=== PATIENT | female | born 1955 | race Caucasian/White ===

== ENCOUNTER 2016-11-05 12:24 | Inpatient (IN) | payer BC ==
[2016-11-05] MEDS ORDERED: SODIUM CHLORIDE 0.9% 10 ML FLUSH FLUSH PRN (12:40)
--- NOTE | 2016-11-05 12:55 | EDPRACDOC ---
- General Information Chief Complaint: Nausea,Vomiting,Diarrhea Stated Complaint: VOMITING DIABETIC Time Seen by Provider: 11/05/16 12:40 Mode Of Arrival: Car Home Medications: Home Medications Lisinopril 20 mg PO QHS 11/10/13 Insulin Aspart [Novolog] 26.7 units SQ DAILY 07/04/15 Loratadine 10 mg PO DAILY PRN 07/04/15 Melatonin 5 mg PO HS 07/04/15 Montelukast Sodium [Singulair] 10 mg PO HS 07/04/15 Tamoxifen [Nolvadex] 20 mg PO DAILY 07/04/15 Omeprazole [Prilosec] 20 mg PO BID #60 cap 07/28/16 Venlafaxine HCl ER [Effexor Xr] 37.5 mg PO DAILY 07/28/16 Hydrocodone Bit/Homatrop Me-Br [Hydrocodone Compound Syrup] 10 ml PO DAILY 11/05 Oseltamivir Phosphate [Tamiflu] 75 mg PO .BID X 5D 11/05/16 Allergies/Adverse Reactions: Allergies Allergy/AdvReac Type Severity Reaction Status Date / Time adhesive Allergy Rash-Genera Verified 11/05/16 12:36 lized latex Allergy Rash-Locali Verified 11/05/16 12:36 zed - History of Present Illness Onset: SUN HPI: SENT BY DR. ANGLIN FOR POSSIBLE DKA; HX OF DM; HAS INSULIN PUMP; RECENT DX OF FLU; FEELS SICK, TIRED, AND WORN OUT. RECORDS REVIEWED FROM DR. ANGLIN OFFICE. Symptoms Occured: Reports: Spontaneous Emesis: Denies: Bilious Recent: Denies: Travel Pain Severity: None Associated Signs & Symptoms: Reports: Nausea, Vomiting Oral Intake: Decreased Urinary Output: Normal ED Past Medical History - History Reviewed Yes Nurses notes reviewed and agree except as marked - Patient Medical History Cardiac History: Reports: Hypertension. Denies: Hypercholesterolemia Respiratory History: Reports: Emphysema. Denies: Pneumonia (2010) Psychological History: Denies: Depression, Substance Use Disorder Systemic History: Reports: Cancer (RIGHT BREAST-2013, lumpectomy and rad no chemo except tamox. MELANOMA.), Anemia (BEFORE HYSTERECTOMY), Diabetes ( Diabetes type 2, but now requires insulin. INSULIN PUMP) Surgical History: Reports: Cholecystectomy, Hysterectomy, Other (Lumpectomy right breast. Cyst removed from foot.) Date of Last Radiation Treatment: 02/2014 - Family Medical History Reports: Cancer (MOTHER, BREAST), Stroke (MOTHER: thought due to complication of a procuedure), Cardiac Disorders (MOTHER: [place] in late 60s.). Denies: Diabetes - Social Medical History Smoking Status: Never smoker Social History: Denies: Substance Use Disorder EDM Review of Systems - Review of Systems ROS Negative Except as Marked: Yes All systems reviewed and were negative except as marked - Physical Exam Constitutional: Alert (Awake), No apparent distress Oriented to: Time, Person, Place Last recorded Vital Signs: Last Vital Signs Temp 98.0 F 11/05/16 12:33 Pulse 95 11/05/16 12:33 Resp 20 11/05/16 12:33 BP 144/65 11/05/16 12:33 Pulse Ox 96 11/05/16 12:33 Oxygen Pulse Oxygen Saturation 96 O2 Device Oxygen Flow Rate Fraction of Inspired Oxygen ( FIO2) - HEENT Head: Normal ( normocephalic) Eye Exam: Normal (PERRL, EOMI, Sclera white) Oropharynx: Normal (Pharynx:Moist without exudate,Gums-no swelling) Tympanic Membrane: Normal ENT EAC: Normal TMJ: Normal Nose: No Symptoms Reported (septum midline) Neck: Normal (FROM, trachea at midline) - Respiratory/Cardiovascular Respiratory: Normal - CTA (BBS clear to auscultation without adventitious sounds ) Cardiovascular: Normal (RRR without murmur, gallop or rub) - GI Auscultation: Normal (NABS) Palpation: Normal (Soft,No rebound or guarding, non distended) Tenderness: Non tender Gaona's Sign: Negative - Musculoskeletal Back: Normal (Non-Tender) Extremities: Normal (Normal tone, Pulses 2+ No cyanosis or edema, FROM) - Integumentary Skin: Normal, Warm, Dry Lymphatics: Normal (no adenopathy) - Neurologic Memory Impaired: Normal Motor Function: Normal (Normal tone, Pulses 2+ No cyanosis or edema, FROM) Cranial Nerve: Normal (CN II-X11 intact sensation, strength 5/5) Cerebellar: Normal Mood Description: Normal Perception: Normal - Results 11/05/16 13:40 11/05/16 13:40 POC Capillary Glucose 565 mg/dL (70-99) H* 11/05/16 12:37 Lab Results 02/01/17 12:37 POC Capillary Glucose 565 H* - EKG EKG #1 [facility]: Normal Rhythm: NSR Block: None Hypertrophy: None ST: Normal ED Critical Care Note - Critical Care Note Total Time (mins): 34 - Departure Yes I personally saw and evaluated the patient. Disposition: Admit IP To This Hospital Condition: Fair Final Diagnosis: DKA Referrals: Bria Anglin MD [Primary Care Provider] - One Week Prescriptions: No Action Lisinopril 20 mg PO QHS Tamoxifen [Nolvadex] 20 mg PO DAILY Montelukast Sodium [Singulair] 10 mg PO HS Loratadine 10 mg PO DAILY PRN PRN Reason: Allergy Symptoms Melatonin 5 mg PO HS Insulin Aspart [Novolog] 26.7 units SQ DAILY Venlafaxine HCl ER [Effexor Xr] 37.5 mg PO DAILY Omeprazole [Prilosec] 20 mg PO BID #60 cap Hydrocodone Bit/Homatrop Me-Br [Hydrocodone Compound Syrup] 10 ml PO DAILY Oseltamivir Phosphate [Tamiflu] 75 mg PO .BID X 5D Decision to Admit Time: 14:35 (FABIAN) Decision to admit date: 11/05/16 Decision to admit: from ED
[2016-11-05 12:56] LABS: ALLEN'S TEST PASS; BEb -14.1 (+/- 2); TCO2 15.1 MMOL/L (23-27)
[2016-11-05 12:57] LABS: ABG Draw Site Left Radial
[2016-11-05 13:16] LABS: LEUKOCYTES/URINE NEG (NEGATIVE); NITRITE/URINE NEG (NEGATIVE); RBC/URINE 0-2 (0-5); URINE OCCULT BLOOD NEG (NEG/TRACE); WBC/URINE 0-2 (0-5)
[2016-11-05] MEDS ORDERED: Insulin, Regular 100 UNITS in NS 99 ML IV SCH ×2 (14:00)
[2016-11-05 14:07] LABS: MPV 10.6 fL (7.4-10.4)
[2016-11-05 14:17] LABS: BLOOD UREA NITROGEN 34 MG/DL (7-17); CALC CORRECTED 8.7 MG/DL (8.4-10.2); CALCIUM 8.2 MG/DL (8.4-10.2); CALCULATED OSMOLALITY 274 MOs/Kg (270-290); CHLORIDE 91 mEq/L (98-107); SODIUM LEVEL 126 mEq/L (137-146)
[2016-11-05 14:25] LABS: GLUCOSE 514 mg/dL (70-99)
[2016-11-05] MEDS: NS 1,000 ML IV SCH ×2 (14:27→15:42)
--- NOTE | 2016-11-05 14:28 | DIRPT ---
CLINICAL DATA: 61-year-old female with history of chest pain. EXAM: PORTABLE CHEST 1 VIEW COMPARISON: Chest x-ray 07/27/2016. FINDINGS: Lung volumes are normal. No consolidative airspace disease. No pleural effusions. No pneumothorax. No pulmonary nodule or mass noted. Pulmonary vasculature and the cardiomediastinal silhouette are within normal limits. IMPRESSION: No radiographic evidence of acute cardiopulmonary disease. Electronically Signed By: Thomas Delatorre M.D. On: 11/05/2016 14:25
[2016-11-05] MEDS ORDERED: ACETAMINOPHEN 325 MG/TAB TABLET PO PRN (15:15)
[2016-11-05] MEDS ORDERED: Loratadine 10 MG TAB PO PRN (15:15)
[2016-11-05] MEDS ORDERED: ONDANSETRON HCL 4 MG/2 ML VIAL IV PRN (15:15)
[2016-11-05 15:22] LABS: SEG NEUTROPHIL 82 % (45-76)
--- NOTE | 2016-11-05 15:27 | HISTPHYS ---
- Chief Complaint weak, n/v, hyperglycemia - History of Present Illness This is a pleasant 61-year-old female with a history of diabetes mellitus who has an insulin pump for the last 2 years, was recently diagnosed with influenza on ThursdayNovember 03, and developed hyperglycemia with nausea and vomiting earlier today. She was seen in her primary care physician's office, with elevated blood sugars over 500, and sent to the emergency department for evaluation for potential diabetic ketoacidosis. Indeed, lab work here showed severe acidosis with a pH of 7.1, and low bicarb with a blood sugar of 550. She was given copious IV fluids and insulin drip was initiated. Hospitalist group was consulted for further evaluation and inpatient admission and management of her diabetic ketoacidosis. Patient denies any current fevers or chills, but says that she had fevers earlier in the week. She also says that she has had some slight chest pain, but it is clearly muscular because it hurts only when she coughs, and not with exertion. She has had nausea and vomiting earlier today, but denies any abdominal pain or diarrhea currently. No rashes on her skin, sick contacts. No swelling in her legs, changes in weight or appetite. - Medical History Cardiac History: Reports: Hypertension. Denies: Hypercholesterolemia Respiratory History: Reports: Emphysema. Denies: Pneumonia (2010) Systemic History: Reports: Cancer (RIGHT BREAST-2013, lumpectomy and rad no chemo except tamox. MELANOMA.), Anemia (BEFORE HYSTERECTOMY), Diabetes ( Diabetes type 2, but now requires insulin. INSULIN PUMP) Psychological History: Denies: Depression, Substance Use Disorder - Surgical History Reports: Cholecystectomy, Hysterectomy, Other (Lumpectomy right breast. Cyst removed from foot.) - Medictions/Allergies Allergies adhesive Allergy (Verified 11/05/16 12:36) Rash-Generalized latex Allergy (Verified 11/05/16 12:36) Rash-Localized Home Medications Lisinopril 20 mg PO QHS 11/10/13 Insulin Aspart [Novolog] 26.7 units SQ DAILY 07/04/15 Loratadine 10 mg PO DAILY PRN 07/04/15 Melatonin 5 mg PO HS 07/04/15 Montelukast Sodium [Singulair] 10 mg PO HS 07/04/15 Tamoxifen [Nolvadex] 20 mg PO DAILY 07/04/15 Omeprazole [Prilosec] 20 mg PO BID #60 cap 07/28/16 Venlafaxine HCl ER [Effexor Xr] 37.5 mg PO DAILY 07/28/16 Hydrocodone Bit/Homatrop Me-Br [Hydrocodone Compound Syrup] 10 ml PO DAILY 11/05 Oseltamivir Phosphate [Tamiflu] 75 mg PO .BID X 5D 11/05/16 - Family History Reports: Cancer (MOTHER, BREAST), Stroke (MOTHER: thought due to complication of a procuedure), Cardiac Disorders (MOTHER: [place] in late 60s.). Denies: Diabetes - Social History Smoking Status: Never smoker Social History: Denies: Substance Use Disorder - Review of Systems Yes All systems reviewed and were negative except as marked (And as mentioned in the history of present illness above.) - Physical Exam Vital Signs: Initial Vitals Temperature 98.0 F 11/05/16 12:33 Pulse Rate 95 11/05/16 12:33 Respiratory Rate 20 11/05/16 12:33 Blood Pressure 144/65 11/05/16 12:33 Pulse Oxygen Saturation 96 11/05/16 12:33 Constitutional: Alert, Distress Oriented to: Time, Person, Place Exam: She is a good historian, seen in a stretcher in the emergency department with no family at the bedside. - HEENT Head: Normal (normocephalic,atraumatic, trachea midline) Eye: Normal (EOMI, Sclera white) Oropharynx: Normal (moist) Nose: No Symptoms Reported (without discharge or bleeding) Respiratory: Normal - CTA (Clear to auscultation bilaterally, no wheezing,rales or rhonchi. No use of accessory muscles) Cardiovascular: Normal (RRR, no murmurs, rubs or gallops) - GI Palpation: Normal (soft, non distended and nontender) - Musculoskeletal Extremities: Normal (normal tone, no cyanosis or edema) - Neurologic Note that her mucous membranes are dry. - Focused CV Perfusion Exam Vital Signs: Last Vital Signs Temp 97.7 F 11/05/16 13:19 Pulse 83 11/05/16 14:49 Resp 18 11/05/16 14:49 BP 112/53 L 11/05/16 14:30 Pulse Ox 92 11/05/16 14:49 - Lab Results Laboratory Tests 11/05/16 11/05/16 11/05/16 12:37 12:56 13:40 WBC Hgb Hct INR pH 7.160 L* pCO2 39.0 pO2 70.0 L Sodium 126 L Potassium 5.0 Carbon Dioxide 13 L Glucose 514 H* POC Capillary Glucose 565 H* ALT 54 H 11/05/16 11/05/16 13:40 13:40 WBC 7.9 Hgb 12.5 Hct 38.3 INR 1.0 pH pCO2 pO2 Sodium Potassium Carbon Dioxide Glucose POC Capillary Glucose ALT - Diagnostic Findings CXR: Lung volumes are normal. No consolidative airspace disease. No pleural effusions. No pneumothorax. No pulmonary nodule or mass noted. Pulmonary vasculature and the cardiomediastinal silhouette are within normal limits - Assessment (1) DKA (diabetic ketoacidoses) E13.10 - OTH DIABETES MELLITUS WITH KETOACIDOSIS WITHOUT COMA Acute Patient is being admitted to the hospital with severe diabetic ketoacidosis without coma , with a pH of 7.1 and other electrolyte abnormalities including hyponatremia and hyperkalemia. She will be admitted to the intensive care unit for close monitoring, using the DKA evidence based care order set. She has been placed on insulin drip, and aggressive IV fluids with normal saline have been initiated. A close eye will be kept on her electrolytes per DKA protocol. She has pseudohyponatremia, and acute kidney injury related to her hyperglycemia and severe dehydration. (2) Hyponatremia E87.1 - HYPO-OSMOLALITY AND HYPONATREMIA Acute Pseudohyponatremia related to hyperglycemia. Will keep a close eye on her sodium levels, which should return to normal once her hyperglycemia and dehydration well treated. (3) Metabolic acidosis E87.2 - ACIDOSIS Acute Due to her diabetic ketoacidosis, treating as above. (4) Depression F32.9 - MAJOR DEPRESSIVE DISORDER, SINGLE EPISODE, UNSPECIFIED Acute Continue home Effexor (5) Type 2 diabetes mellitus with hyperglycemia E11.65 - TYPE 2 DIABETES MELLITUS WITH HYPERGLYCEMIA Acute Patient uses an insulin pump; her basal rate is 26.7 units/24 hours. Plan: Insulin pump was discontinued at this time so that we can closely manage her blood sugars. Treating DKA as mentioned above. Ordered hemoglobin A1c and urine microalbumin. (6) Flu J11.1 - FLU DUE TO UNIDENTIFIED INFLUENZA VIRUS W OTH RESP MANIFEST Acute She started treatment with Tamiflu on November 03, will resume this today, she did not take her morning dose she was vomiting. Hopefully she can tolerate the p.o. doses for the next few days to complete a total course. (7) DELL (acute kidney injury) N17.9 - ACUTE KIDNEY FAILURE, UNSPECIFIED Acute This is most likely related to dehydration from her diabetic ketoacidosis, nausea and vomiting. Will hydrate aggressively as mentioned above, recheck renal function in the morning. If not improving, could consider evaluating renal parenchyma with renal ultrasound. - Plan In summary this patient is acutely and critically ill. The patient requires treatment of vital organ failure and measures to prevent further life- threatening deterioration of the above conditions. I personally reviewed and ordered lab testing, as well as imaging. I reviewed old medical records from previous hospitalizations as available, and spent the time mentioned below in critical care of this patient including counseling and coordination of care. Total Time: 90
[2016-11-05] MEDS ORDERED: DEXTROSE 25 GM/50 ML PFS IV PRN (15:28)
[2016-11-05] MEDS ORDERED: REGULAR INSULIN 100 UNITS/ML - 3 ML VIAL SQ SCH (16:00)
[2016-11-05] MEDS ORDERED: D5W/NS/KCl 20 mEq 1,000 ML IV SCH (16:00)
[2016-11-05] MEDS ORDERED: DKA ELECTROLYTE PROTOCOL SCH (16:00)
[2016-11-05] MEDS ORDERED: NS 1,000 ML IV SCH (16:00)
[2016-11-05 16:59] LABS: BLOOD UREA NITROGEN 31 MG/DL (7-17); CALCIUM 7.8 MG/DL (8.4-10.2); CALCULATED OSMOLALITY 270 MOs/Kg (270-290); CHLORIDE 98 mEq/L (98-107); GLUCOSE 320 mg/dL (70-99); SODIUM LEVEL 130 mEq/L (137-146)
[2016-11-05] MEDS: ENOXAPARIN 40 MG/0.4 ML PFS SQ SCH (17:26)
[2016-11-05] MEDS: NS/KCl 20 mEq 1,000 ML IV SCH (17:27)
[2016-11-05] MEDS: PANTOPRAZOLE 40 MG TAB PO SCH (17:27)
[2016-11-05] MEDS ORDERED: Vaccine Screening Complete SCH (19:00)
[2016-11-05 19:23] LABS: BLOOD UREA NITROGEN 26 MG/DL (7-17); CALCIUM 7.7 MG/DL (8.4-10.2); CALCULATED OSMOLALITY 266 MOs/Kg (270-290); CHLORIDE 99 mEq/L (98-107); GLUCOSE 215 mg/dL (70-99); SODIUM LEVEL 132 mEq/L (137-146)
[2016-11-05] MEDS: MONTELUKAST SODIUM 10 MG TAB PO SCH (20:34)
[2016-11-05] MEDS: OSELTAMIVIR PHOSPHATE 75 MG CAP PO SCH (20:34)
[2016-11-05] MEDS ORDERED: MELATONIN 5 MG PO SCH (21:00)
[2016-11-05] MEDS ORDERED: Non-Formulary Medication ITEM (Omeprazole 20 MG) PO SCH (21:00)
[2016-11-05] MEDS: CHLORHEXIDINE (HIBICLENS) 4 OZ BOTTLE TOP SCH (21:36)
[2016-11-05] MEDS: D5W/NS/KCl 20 mEq 1,000 ML IV SCH (21:43)
[2016-11-06] MEDS ORDERED: Insulin, Regular 100 UNITS in NS 99 ML IV SCH ×2
[2016-11-06 00:50] LABS: BLOOD UREA NITROGEN 19 MG/DL (7-17); CALCIUM 7.5 MG/DL (8.4-10.2); CALCULATED OSMOLALITY 259 MOs/Kg (270-290); CHLORIDE 103 mEq/L (98-107); GLUCOSE 119 mg/dL (70-99); SODIUM LEVEL 133 mEq/L (137-146)
[2016-11-06 04:14] LABS: BLOOD UREA NITROGEN 15 MG/DL (7-17); CALCIUM 7.4 MG/DL (8.4-10.2); CALCULATED OSMOLALITY 262 MOs/Kg (270-290); CHLORIDE 104 mEq/L (98-107); GLUCOSE 114 mg/dL (70-99); SODIUM LEVEL 135 mEq/L (137-146)
[2016-11-06] MEDS: PANTOPRAZOLE 40 MG TAB PO SCH ×2 (06:21→17:39)
[2016-11-06] MEDS: D5W/NS/KCl 20 mEq 1,000 ML IV SCH (06:22)
[2016-11-06 07:31] LABS: MPV 9.8 fL (7.4-10.4)
[2016-11-06] MEDS: OSELTAMIVIR PHOSPHATE 75 MG CAP PO SCH ×2 (07:44→19:34)
[2016-11-06] MEDS: TAMOXIFEN 10 MG TAB PO SCH (07:44)
[2016-11-06] MEDS: VENLAFAXINE XR 37.5 MG CAP PO SCH (07:44)
[2016-11-06 07:48] LABS: BLOOD UREA NITROGEN 13 MG/DL (7-17); CALCIUM 7.6 MG/DL (8.4-10.2); CALCULATED OSMOLALITY 263 MOs/Kg (270-290); CHLORIDE 105 mEq/L (98-107); GLUCOSE 108 mg/dL (70-99); SODIUM LEVEL 136 mEq/L (137-146)
[2016-11-06] MEDS: NS/KCl 20 mEq 1,000 ML IV SCH (07:55)
[2016-11-06] MEDS ORDERED: NS 1,000 ML IV SCH (08:13)
[2016-11-06 08:22] LABS: BLOOD UREA NITROGEN 12 MG/DL (7-17); CALCIUM 7.4 MG/DL (8.4-10.2); CALCULATED OSMOLALITY 263 MOs/Kg (270-290); CHLORIDE 105 mEq/L (98-107); GLUCOSE 117 mg/dL (70-99); SODIUM LEVEL 136 mEq/L (137-146)
--- NOTE | 2016-11-06 08:59 | GENMEDPROG ---
Chief Complaint: Diabetic ketoacidosis Subjective Note: She is feeling much better this morning, blood sugars are much improved and her acidosis is resolved. No more nausea and vomiting. Notes Reviewed: Yes: Events from last night noted and discussed with Clinical Staff Current Medication List: Reviewed Currently: Reports: Cough, Wheezing DVT Prophylaxis: Yes - Physical Examination Vital Signs and I&O: Last Vital Signs Temp 98.5 F 11/06/16 04:00 Pulse 80 11/06/16 08:00 Resp 18 11/06/16 04:00 BP 101/49 L 11/06/16 06:00 Pulse Ox 95 11/06/16 04:00 Oxygen Pulse Oxygen Saturation 95 O2 Device Room Air Oxygen Flow Rate 2 Fraction of Inspired Oxygen ( FIO2) Intake & Output 11/04/16 11/05/16 11/06/16 11/07/16 06:59 06:59 06:59 06:59 Intake Total 3114 Balance 3114 Patient's weight 81.964 kg General: Alert, Oriented x3, No acute distress Neck: Normal Trachea alignment, Normal inspection Respiratory: Normal - CTA (Clear to auscultation bilaterally, no wheezing,rales or rhonchi. No use of accessory muscles) Cardiovascular: Regular rate, No Gallops,Rubs/Murmurs GI: Normal bowel sounds, Soft, Non tender (non distended) Extremities/Musculoskeletal: Other (Normal Tone). negative: Edema, Cyanosis Skin: No rashes, No significant lesion Lab/DI/Studies Reviewed: Laboratory Tests 11/06/16 11/06/16 11/06/16 06:30 06:30 08:32 WBC 5.0 Hgb 11.6 L Hct 34.2 L Potassium 4.1 Creatinine 0.60 POC Capillary Glucose 128 H - Assessment (1) DKA (diabetic ketoacidoses) Acute E13.10 - OTH DIABETES MELLITUS WITH KETOACIDOSIS WITHOUT COMA Comment/ Plan: Patient was admitted to the hospital with severe diabetic ketoacidosis without coma, with a pH of 7.1 and other electrolyte abnormalities including hyponatremia and hyperkalemia. She was admitted to the intensive care unit for close monitoring, using the DKA evidence based care order set. She was placed on insulin drip, and aggressive IV fluids with normal saline have been initiated. A close eye was kept on her electrolytes per DKA protocol. She had pseudohyponatremia, and acute kidney injury related to her hyperglycemia and severe dehydration which are all improving today. As such, she will be taken off the insulin drip and her insulin pump will be reinstated, with a basal rate of 1.3 units of insulin per hour. Will follow her blood sugars closely, every 2-3 hours and allow her to bolus from her pump as needed. Will also advance her diet slowly this morning diabetic diet as tolerated but the patient was advised to advance very slowly so as to avoid spikes in her blood sugar. (2) Hyponatremia Acute E87.1 - HYPO-OSMOLALITY AND HYPONATREMIA Comment/Plan: Pseudohyponatremia related to hyperglycemia. Now improved. (3) Metabolic acidosis Acute E87.2 - ACIDOSIS Comment/Plan: Due to her diabetic ketoacidosis, treating as above. (4) Depression Acute F32.9 - MAJOR DEPRESSIVE DISORDER, SINGLE EPISODE, UNSPECIFIED Comment /Plan: Continue home Effexor (5) Type 2 diabetes mellitus with hyperglycemia Acute E11.65 - TYPE 2 DIABETES MELLITUS WITH HYPERGLYCEMIA Comment/Plan: Patient uses an insulin pump; her basal rate is 26.7 units/24 hours. Plan: Insulin pump was discontinued at this time so that we can closely manage her blood sugars. Treating DKA as mentioned above. Ordered hemoglobin A1c and urine microalbumin. (6) Flu Acute J11.1 - FLU DUE TO UNIDENTIFIED INFLUENZA VIRUS W OTH RESP MANIFEST Comment/Plan: She started treatment with Tamiflu on November 03, resumed in the hospital. She is on droplet precautions. (7) DELL (acute kidney injury) Acute N17.9 - ACUTE KIDNEY FAILURE, UNSPECIFIED Comment/Plan: This is most likely related to dehydration from her diabetic ketoacidosis, nausea and vomiting. Hydrated aggressively per DKA protocol, now much improved. Case Care Discussed with: Patient, Nursing Staff Total Time: 45
[2016-11-06] MEDS ORDERED: INSULIN ASPART 100 UNITS/ML PEN SQ SCH (10:00)
[2016-11-06] MEDS: BENZONATATE 100 MG PERLES PO PRN ×2 (12:01→19:35)
[2016-11-06] MEDS: ENOXAPARIN 40 MG/0.4 ML PFS SQ SCH (17:39)
[2016-11-06] MEDS: MONTELUKAST SODIUM 10 MG TAB PO SCH (19:35)
[2016-11-06] MEDS: CHLORHEXIDINE (HIBICLENS) 4 OZ BOTTLE TOP SCH (19:57)
[2016-11-07 05:12] VITALS: BMI 30.7
[2016-11-07] MEDS: PANTOPRAZOLE 40 MG TAB PO SCH (05:41)
[2016-11-07] MEDS: BENZONATATE 100 MG PERLES PO PRN (05:41)
[2016-11-07 07:18] LABS: BLOOD UREA NITROGEN 7 MG/DL (7-17); CALCULATED OSMOLALITY 265 MOs/Kg (270-290); CHLORIDE 105 mEq/L (98-107); GLUCOSE 56 mg/dL (70-99); SODIUM LEVEL 140 mEq/L (137-146)
[2016-11-07] MEDS: VENLAFAXINE XR 37.5 MG CAP PO SCH (07:47)
[2016-11-07] MEDS: TAMOXIFEN 10 MG TAB PO SCH (07:47)
[2016-11-07] MEDS: OSELTAMIVIR PHOSPHATE 75 MG CAP PO SCH (07:47)
[2016-11-07 08:16] VITALS: TEMP 97.7
[2016-11-07] MEDS ORDERED: LISINOPRIL 20 MG TAB PO ONE (08:30)
[2016-11-07 10:10] VITALS: BP 175/75; PULSE 78
--- NOTE | 2016-11-07 10:23 | PCM.DCS92 ---
- Final/Secondary Discharge Diagnosis (1) DKA (diabetic ketoacidoses) Acute E13.10 - OTH DIABETES MELLITUS WITH KETOACIDOSIS WITHOUT COMA Comment : Patient was admitted to the hospital with severe diabetic ketoacidosis without coma, with a pH of 7.1 and other electrolyte abnormalities including hyponatremia and hyperkalemia. She was admitted to the intensive care unit for close monitoring, using the DKA evidence based care order set. She was placed on insulin drip, and aggressive IV fluids with normal saline have been initiated. A close eye was kept on her electrolytes per DKA protocol. She had pseudohyponatremia, and acute kidney injury related to her hyperglycemia and severe dehydration which are all improving today. On the morning of November 06, she was taken off of her insulin drip and her insulin pump was reinstated. Her blood sugars were followed closely, they were in the normal range, with some borderline hypoglycemia which was improved with oral intake. She is tolerating a diet today, feeling well with much improved blood sugars and electrolyte imbalances corrected. She will be discharged home from the hospital today. (2) Hyponatremia Acute E87.1 - HYPO-OSMOLALITY AND HYPONATREMIA Comment: Pseudohyponatremia related to hyperglycemia. Now improved. (3) Metabolic acidosis Acute E87.2 - ACIDOSIS Comment: Due to her diabetic ketoacidosis, treating as above. (4) Depression Acute F32.9 - MAJOR DEPRESSIVE DISORDER, SINGLE EPISODE, UNSPECIFIED Comment : Continue home Effexor (5) Type 2 diabetes mellitus with hyperglycemia Acute E11.65 - TYPE 2 DIABETES MELLITUS WITH HYPERGLYCEMIA Comment: Patient uses an insulin pump; her basal rate is 26.7 units/24 hours. Plan: Insulin pump was discontinued at this time so that we can closely manage her blood sugars. Treating DKA as mentioned above. Ordered hemoglobin A1c and urine microalbumin. (6) Flu Acute J11.1 - FLU DUE TO UNIDENTIFIED INFLUENZA VIRUS W OTH RESP MANIFEST Comment: She started treatment with Tamiflu on November 03, resumed in the hospital. She was on droplet precautions in the hospital, and she will be discharged home today with instructions to continue her muscle time of ear to complete a total 7 day course. (7) DELL (acute kidney injury) Acute N17.9 - ACUTE KIDNEY FAILURE, UNSPECIFIED Comment: This is most likely related to dehydration from her diabetic ketoacidosis, nausea and vomiting. Hydrated aggressively per DKA protocol, now much improved. Discharge Disposition: Home Discharge Condition: Fair Cognitive Discharge Status: Unimpaired Fuctional Discharge Status: Independent Physician Follow up/Referrals: Bria Ware MD [Primary Care Provider] - 11/14/16 9:15 am Home Medications / New Prescriptions: New Benzonatate [Tessalon] 200 mg PO Q8H PRN #30 capsule PRN Reason: Cough Continue Lisinopril 20 mg PO QHS Tamoxifen [Nolvadex] 20 mg PO DAILY Montelukast Sodium [Singulair] 10 mg PO HS Melatonin 5 mg PO HS Insulin Aspart [Novolog] 26.7 units SQ DAILY Venlafaxine HCl ER [Effexor Xr] 37.5 mg PO DAILY Hydrocodone Bit/Homatrop Me-Br [Hydrocodone Compound Syrup] 10 ml PO DAILY Oseltamivir Phosphate [Tamiflu] 75 mg PO .BID X 5D O2 Device: Room Air Diet at Discharge: Diabetic Activity: No Restrictions - DC Summary Notes HPI/Notes: This is a 61-year-old female with a history of diabetes with insulin pump who was recently diagnosed with influenza and started on Tamiflu. She developed nausea and vomiting and dehydration, which led to diabetic ketoacidosis.Please see the hospital problems and discharge problems above for details of the hospital course including diagnostics and treatment. The plan of care including medications, prognosis, follow-up including alarm symptoms for which medical care should be sought were reviewed with the patient and any available family members/caretakers. The patient is agreeable to discharge today, and all questions were answered by me to their satisfaction. Hospital Course Note:: Discharge summary on patient named MOLLY SHARMA admitted to [facility] on 11/05/16 by Stalin Mak MD. Date of discharge is []. Total Time: 40 - Physical Exam Vital Signs: Last Vital Signs Temp 97.7 F 11/07/16 08:00 Pulse 78 11/07/16 10:00 Resp 18 11/07/16 06:00 BP 175/75 11/07/16 10:00 Pulse Ox 95 11/07/16 08:00 Oxygen Pulse Oxygen Saturation 95 O2 Device Room Air Oxygen Flow Rate 2 Fraction of Inspired Oxygen ( FIO2) Constitutional: No apparent distress, Alert Oriented to: Time, Person, Place Exam: Patient resting comfortably in bed this morning. She is feeling well, ready to go home. - HEENT Head: Normal (normocephalic,atraumatic, trachea midline) Eye: Normal (EOMI, Sclera white) Oropharynx: Normal (moist) Nose: No Symptoms Reported (without discharge or bleeding) - Respiratory/Cardiovascular Respiratory: Normal - CTA (Clear to auscultation bilaterally, no wheezing,rales or rhonchi. No use of accessory muscles) Cardiovascular: Normal (RRR , Normal S1, S2. No murmurs, rubs, or gallops. PMI non-displaced. Carotids: no carotid bruits. No bradycardia or tachycardia. DP pulses 2+ bilaterally.) - GI Palpation: Normal (soft, non distended and nontender) - Musculoskeletal Extremities: Normal (normal tone, no cyanosis or edema) - Integumentary Skin: Normal, Warm, Dry Lymphatics: Normal (no adenopathy) - Neurologic Memory Impaired: Normal Cerebellar: Normal Mood Description: Normal Perception: Normal
== END 2016-11-07 11:02 | disposition home or self-care (01) | DRG 638 ==
LOC: ED 12:24 → ICU 15:30
PROVIDERS: ADMIT Internal Medicine; ATTEND Internal Medicine
PROC: 039C3ZZ Drainage of Left Radial Artery, Percutaneous Approach (ICD-10-PCS; principal; 2016-11-05)
DX: E13.10 Other specified diabetes mellitus with ketoacidosis without coma (principal); E87.1 Hypo-osmolality and hyponatremia; N17.9 Acute kidney failure, unspecified; F32.9 Major depressive disorder, single episode, unspecified; E11.65 Type 2 diabetes mellitus with hyperglycemia; J11.1 Influenza due to unidentified influenza virus with other respiratory manifestations; I10 Essential (primary) hypertension; J43.9 Emphysema, unspecified; Z85.3 Personal history of malignant neoplasm of breast; Z91.040 Latex allergy status; Z79.4 Long term (current) use of insulin; Z79.899 Other long term (current) drug therapy
CPT/HCPCS: 36415; 36600; 71010; 80048; 80053; 81001; 82803; 82962; 83690; 83735; 83880; 84100; 84484; 85007; 85027; 85610; 85730; 87040; 87086; 87641; 93005; 96361; 96365; 96372; 99284; J1650; J1815; J2405; J3490; J7030; J7040; J7070